=== PATIENT | male | born 1960 | race American Indian/Alaskan Native ===

== ENCOUNTER → 2016-11-19 | Outpatient (CLI) | payer MEDICARE, MEDICAID ==
[~2016-11-19] MED LIST: CIP250 PO; MIRAUD PO; MULT-723 PO; SENN-161 PO
== END | disposition home or self-care (01) ==
LOC: RADPV 09:44
PROVIDERS: ATTEND Family Medicine
DX: Z13.820 Encounter for screening for osteoporosis (principal); M81.0 Age-related osteoporosis without current pathological fracture
CPT/HCPCS: 77080

== ENCOUNTER 2018-09-05 15:30 | Emergency (ER) | payer MEDICARE, MEDICAID ==
[~2018-09-05] VITALS: Ht 165.1 cm; Wt 59.1 kg
[2018-09-05] MEDS ORDERED: LACT1TAB11 PO (16:38)
[2018-09-05] MEDS ORDERED: OXYM30SP27 NASAL (16:38)
[2018-09-05] MEDS ORDERED: AUD NEB (16:41)
[2018-09-05] MEDS ORDERED: DIPH25 PO (16:41)
[2018-09-05] MEDS ORDERED: AZIT250T9 PO (16:41)
[2018-09-05] MEDS ORDERED: LEVO500 PO (16:41)
[2018-09-05] MEDS ORDERED: POLY8.5P PO (16:41)
[2018-09-05] MEDS ORDERED: OSEL75 PO (16:47)
[2018-09-05] MEDS ORDERED: BISA10SU22 PR (16:47)
[2018-09-05] MEDS ORDERED: MULT-723 PO (16:47)
[2018-09-05] MEDS ORDERED: SENN-176 PO (16:47)
[2018-09-05] MEDS ORDERED: PRED10 PO (16:47)
[2018-09-05] MEDS ORDERED: MOM30 PO (16:47)
[2018-09-05] MEDS ORDERED: PSEU30TA31 PO (16:47)
[2018-09-05] MEDS ORDERED: ACET650S27 PR (16:47)
[2018-09-05] MEDS ORDERED: ACET325T47 PO (16:47)
[2018-09-05] MEDS ORDERED: 0.9% SODIUM CHLORIDE 10 ML SYRINGE IVP PRN (17:00)
[2018-09-05 17:18] LABS: BASOPHILS % (AUTO) 0.3 % (0.0-2.0); EOSINOPHILS % (AUTO) 1.7 % (1.0-6.0); HEMATOCRIT 40.9 % (41-53); HEMOGLOBIN 13.8 g/dL (13.5-17.5); LYMPHOCYTES # (AUTO) 2.3 K/uL (1.0-4.8); LYMPHOCYTES % (AUTO) 26.6 % (22.0-44.0); MEAN CORPUSCULAR HEMOGLOBIN 29.6 pg (26.0-34.0); MEAN CORPUSCULAR HGB CONC 33.9 G/dL (31.0-37.0); MEAN CORPUSCULAR VOLUME 88 fL (80-100); MONOCYTES # (AUTO) 1.1 K/uL (0.1-1.0); MONOCYTES % (AUTO) 12.7 % (2.0-9.0); NEUTROPHILS % (AUTO) 58.7 % (40.0-70.0); PLATELET COUNT (AUTO) 244 K/uL (150-450); RED BLOOD CELL COUNT(AUTO) 4.67 MIL/uL (4.50-5.90); RED CELL DISTRIBUTION WIDTH 14.2 % (11.5-14.5)
[2018-09-05 17:29] LABS: INR 0.9 (0.9-1.1); PROTHROMBIN TIME 9.9 SEC (9.4-11.6)
[2018-09-05 17:31] LABS: ANION GAP 11 mmol/L (8-16); CALCIUM, TOTAL 9.1 mg/dL (8.8-10.5); CARBON DIOXIDE 24 mmol/L (22-29); CHLORIDE 105 mmol/L (98-107); CREATININE 0.75 mg/dL (0.60-1.30); GLOMERULAR FILTR. RATE CALC > 60 mL/min (>60); GLUCOSE,RANDOM 111 mg/dL (70-110); POTASSIUM 4.4 mmol/L (3.5-5.1); SODIUM SERUM 140 mmol/L (136-145); UREA NITROGEN, BLOOD 25 mg/dL (7-18)
[2018-09-05 17:37] LABS: ALANINE AMINOTRANSFERASE 29 U/L (12-78); ALBUMIN 3.3 g/dL (3.4-5.0); ALKALINE PHOSPHATASE 115 U/L (46-116); ASPARTATE AMINOTRANSFERASE 21 U/L (15-37); BILIRUBIN,TOTAL 0.2 mg/dL (0.1-1.0)
[2018-09-05 18:40] LABS: B-TYPE NATRIURETIC PEPTIDE 40 pg/mL (0-100)
[2018-09-05 19:00] VITALS: BP 148/91
[2018-09-05 19:05] LABS: INFLUENZA TYPE A POSITIVE FOR TYPE A (NEGATIVE); INFLUENZA TYPE B NEGATIVE FOR TYPE B (NEGATIVE)
== END 2018-09-05 20:43 | disposition home or self-care (01) ==
LOC: EMS 15:32
DX: J11.1 Influenza due to unidentified influenza virus with other respiratory manifestations (principal); F79 Unspecified intellectual disabilities; G80.9 Cerebral palsy, unspecified; R94.31 Abnormal electrocardiogram [ECG] [EKG]
CPT/HCPCS: 83605; 87040; 87804; 93005